=== PATIENT | female | born 1945 | race Hispanic/Latino ===

== ENCOUNTER → 2017-10-15 | Outpatient (CLI) | payer OTHER ==
[~2017-10-15] MED LIST: ATOR40TA71 PO; LEVO75TA10 PO; OMEP40CA37 PO
== END | disposition home or self-care (01) ==
LOC: RAH 08:51
PROVIDERS: ATTEND Family Medicine
DX: Z12.31 Encounter for screening mammogram for malignant neoplasm of breast (principal)
CPT/HCPCS: 77067

== ENCOUNTER → 2019-07-09 | Outpatient (CLI) | payer OTHER ==
[~2019-07-09] MED LIST changes: +OMEP40CA13 PO; -OMEP40CA37 PO
== END | disposition home or self-care (01) ==
LOC: RAH 07:59
PROVIDERS: ATTEND Family Medicine
DX: Z12.31 Encounter for screening mammogram for malignant neoplasm of breast (principal)
CPT/HCPCS: 77067

== ENCOUNTER → 2020-09-13 | Outpatient (CLI) | payer OTHER | END | disposition home or self-care (01) | LOC: RAH 08:44 | PROVIDERS: ATTEND Family Medicine | DX: Z12.31 Encounter for screening mammogram for malignant neoplasm of breast (principal) | CPT/HCPCS: 77067 ==

== ENCOUNTER 2023-11-23 11:50 | Emergency (ER) | payer OTHER ==
[~2023-11-23] VITALS: Ht 165.1 cm; Wt 78.9 kg
[~2023-11-23 11:50] MED LIST changes: -OMEP40CA13 PO; +OMEP40CA21 PO
[2023-11-23 12:21] LABS: BASOPHILS # (AUTO) 0.03 K/uL (0.00-0.20); BASOPHILS % (AUTO) 0.5 % (0.0-5.0); EOSINOPHILS # (AUTO) 0.16 K/uL (0.00-0.70); EOSINOPHILS % (AUTO) 2.6 % (0.0-8.0); HEMATOCRIT 40.2 % (36-48); IMMATURE GRANULOCYTE ABSOLUTE 0.01 K/uL (0-1); LYMPHOCYTES % (AUTO) 47.4 % (21.0-51.0); MEAN CORPUSCULAR HEMOGLOBIN 27.8 pg (27.0-33.0); MEAN CORPUSCULAR HGB CONC 33.1 g/dL (32.0-36.0); MEAN CORPUSCULAR VOLUME 84.1 fL (79-99); MONOCYTES # (AUTO) 0.5 K/uL (0.1-1.0); MONOCYTES % (AUTO) 7.2 % (3.0-13.0); NEUTROPHILS # (AUTO) 2.6 K/uL (1.8-7.7); NEUTROPHILS % (AUTO) 42.1 % (40.0-77.0); PLATELET COUNT (AUTO) 135 K/uL (130-400); RED BLOOD CELL COUNT(AUTO) 4.78 MIL/uL (4.00-5.50); RED CELL DISTRIBUTION WIDTH 13.5 % (11.0-15.5); WHITE BLOOD COUNT (AUTO) 6.2 K/uL (4.8-10.8)
[2023-11-23] MEDS ORDERED: IOHEXOL 350 MG/ML 100ML INFUS..BTL IV ONE (12:21)
[2023-11-23] MEDS ORDERED: ACYCLOVIR 1000 MG VIAL IV ONE (12:30)
[2023-11-23 12:33] LABS: CREATININE 0.7 mg/dL (0.5-1.0); POTASSIUM 4.9 mmol/L (3.5-5.1)
[2023-11-23 12:37] LABS: INR 0.96 (0.85-1.15); PARTIAL THROMBOPLASTIN TIME 25.3 SEC (26.3-35.5); PROTHROMBIN TIME 10.2 SEC (9.6-11.6)
[2023-11-23 12:38] LABS: ALBUMIN 4.4 g/dL (3.5-5.0); BILIRUBIN,TOTAL 0.6 mg/dL (0.2-1.0); TOTAL PROTEIN, SERUM 7.8 g/dL (6.0-8.3)
[2023-11-23] MEDS: DEXAMETHASONE SOD PHOSPHATE 10MG/ML 1ML VIAL IVP ONE (13:39)
[2023-11-23] MEDS: ONDANSETRON 4MG INJ IVP ONE (13:39)
[2023-11-23 14:25] LABS: APPEARANCE,URINE CLEAR (CLEAR); BILIRUBIN,URINE NEGATIVE (NEGATIVE); GLUCOSE, URINE (UA) NEGATIVE (NEGATIVE); KETONES,URINE NEGATIVE (NEGATIVE); LEUKOCYTE ESTERASE ,URINE NEGATIVE Leu/uL (NEGATIVE); NITRATE,URINE NEGATIVE (NEGATIVE); OCCULT BLOOD,URINE NEGATIVE (NEGATIVE); PROTEIN,URINE NEGATIVE (NEGATIVE); UROBILINOGEN,URINE 0.2 mg/dL (0.2-1.0)
[2023-11-23 14:27] LABS: ADD UA MICROSCOPIC NO; COLOR,URINE Straw (YELLOW)
[2023-11-23 15:21] VITALS: BP 124/76; PULSE 68; RESP 18; O2SAT 98
[2023-11-23] MEDS ORDERED: PRED20TA3 PO (15:22)
[2023-11-23] MEDS ORDERED: ONDA-243 PO (15:22)
[2023-11-23] MEDS ORDERED: OMEP20TA20 PO (15:22)
[2023-11-23] MEDS ORDERED: VALA10002 PO (15:22)
[2023-11-23] MEDS ORDERED: DEXT1DRO8 OP (15:22)
[2023-11-23] MEDS ORDERED: DEXT15DR24 OP (15:22)
[2023-11-23] MEDS: ARTIFICAL TEARS SOL 15 ML OP SCH (15:45)
== END 2023-11-23 15:45 | disposition home or self-care (01) ==
LOC: EDH 11:50
DX: G51.0 Bell's palsy (principal); D69.6 Thrombocytopenia, unspecified; Z79.899 Other long term (current) drug therapy
CPT/HCPCS: 99285; 96365; 70450; 96375; 71045; 84484; 80053; 85025; 85610; 85730; 82948; 81003; 36415; 93005; J1100; J2405; J0133; J7050; Q9967

== ENCOUNTER 2025-04-13 09:09 | Emergency (ER) | payer OTHER ==
[~2025-04-13] VITALS: Ht 162.6 cm; Wt 82.1 kg
[~2025-04-13 09:09] MED LIST changes: +DEXT15DR24 OP; +DEXT1DRO8 OP; +OMEP20TA20 PO; +ONDA-243 PO; +PRED20TA3 PO; +VALA10002 PO
--- NOTE | 2025-04-13 09:19 | ERN ---
General Chief Complaint: Shortness of Breath Stated Complaint: SOB Time Seen by MD: 09:14 Source: patient History of Present Illness Initial Comments Patient is a 79-year-old female coming in complaining of shortness of breath. Patient states that earlier today she has a episode of shortness of breath which she could not catch her breath and decided to come in for further evaluation. Patient states that she has a history of hypertension. She has a never down oxygen at home. Allergies: Coded Allergies: No Known Drug Allergies (Unverified Allergy, Unknown, 05/08/16) Home Meds Active Scripts Dextran 70/Hypromellose (Artificial Tears Eye Drops) 0.1 %-0.3 % Drops, 15 ML OP QID, #1 BOTTLE Prov:GRACIE HERNANDEZ MD 11/23/23 Dextran 70/Hypromellose/Pf (Artificial Tears Drops) 0.1 %-0.3 % Droperette, 1 EACH OP QID, #1 BOTTLE Prov:GRACIE HERNANDEZ MD 11/23/23 Ondansetron (Ondansetron Odt) 4 Mg Tab.rapdis, 4 MG PO Q6HPRN PRN for NAUSEA/VOMITING, #30 TAB Prov:GRACIE HERNANDEZ MD 11/23/23 Omeprazole (Omeprazole) 20 Mg Tablet.dr, 20 MG PO DAILY, #30 TAB Prov:GRACIE HERNANDEZ MD 11/23/23 Prednisone (Prednisone) 20 Mg Tablet, 10 MG PO DAILYBKFST for 4 Days, #2 TAB Prov:GRACIE HERNANDEZ MD 11/23/23 Prednisone (Prednisone) 20 Mg Tablet, 20 MG PO DAILYBKFST, #3 TAB Prov:GRACIE HERNANDEZ MD 11/23/23 Prednisone (Prednisone) 20 Mg Tablet, 40 MG PO DAILYBKFST, #6 TAB Prov:GRACIE HERNANDEZ MD 11/23/23 Prednisone (Prednisone) 20 Mg Tablet, 60 MG PO DAILYBKFST, #9 TAB Prov:GRACIE HERNANDEZ MD 11/23/23 Valacyclovir HCl (Valtrex) 1,000 Mg Tablet, 1000 MG PO TID, #30 TAB Prov:GRACIE HERNANDEZ MD 11/23/23 Reported Medications Omeprazole (Omeprazole) 40 Mg Capsule.dr, 40 MG PO AD PRN for gerd, CAP 05/08/16 Atorvastatin Calcium (Atorvastatin Calcium) 40 Mg Tablet, 40 MG PO PM, TAB 05/08/16 Levothyroxine Sodium (Levothyroxine Sodium) 75 Mcg Tablet, 75 MCG PO AM, TAB 05/08/16 Past Medical History Past Medical History: High Cholesterol, Hypothyroid Past Surgical History: Other Surgical History Other: NO SURGERIES ROS Dictation CONSTITUTIONAL: No chills, no fever, no weakness, no diaphoresis, no malaise. HEAD/FACE: No signs of trauma. EENT: No eye pain, no blurred vision, no tearing, no double vision, no ear pain, no ear discharge, no nose pain, no nasal congestion, no throat pain, no throat swelling, no mouth pain. RESPIRATORY: No cough, no orthopnea, SOB, no stridor, no wheezing. CARDIOVASCULAR: No chest pain, no edema, no palpitations, no syncope. GASTROINTESTINAL/ABDOMINAL: No abdominal pain, no constipation, no diarrhea, no nausea, no vomiting. GENITOURINARY: No abnormal discharge, no dysuria, no frequent urination, no hematuria. No complaints of pain in the genitals. MUSCULOSKELETAL: No back pain, no gout, no joint pain, no joint swelling, no muscle pain, no muscle stiffness, no neck pain. INTEGUMENTARY: No change in color, no change in hair/nails, no dryness, no lesion, no lumps, no rash. NEUROLOGICAL/PSYCH: No anxiety, not depressed, no emotional problem, no headache, no numbness, no pre-existing deficit, no history of seizures, no tremors, no weakness. HEMATOLOGIC/LYMPHATIC: Not anemic, no history of blood clots, no apparent bleeding, no bruising, glands not swollen. All Systems Negative, Except as Noted. Physical Exam Physical Exam Dictation VITAL SIGNS: Reviewed. GENERAL APPEARANCE: Alert, oriented x3, no acute distress, obese. HEAD AND FACE: Non-traumatic. EYES: PERRL, pink conjunctivas, eyelid no trauma, anterior chamber clear. EARS: Pinnas intact and no signs of trauma or erythema. Ear canals clear and no discharge. TMs no erythema. NOSE: No discharge, no bleeding. OROPHARYNX: Mouth normal, teeth no caries, tongue pink. Pharynx clear, no erythema. Tonsils no exudates, no abscesses noted. Mucous membrane moist. NECK: Supple, non-tender, no thyromegaly, no masses, no JVD, no bruits. BREAST: Deferred. CHEST: No tenderness, no crepitus, no paradoxical movement, no retractions. LUNGS: Clear, well-ventilated, symmetric, no rales, no wheezing, no rhonchi, no stridor, good breath sounds bilaterally. HEART: Regular rate, regular rhythm, no murmur, no gallops. VASCULAR: No peripheral edema. ABDOMEN: Soft, positive bowel sounds, nondistended, no guarding, nontender, no rebound, no masses no hepatomegaly, no splenomegaly, no Caldera's sign, no hernias. RECTAL: Deferred. GENITAL: Deferred. NEUROLOGICAL: Normal speech, gross motor function intact, gross sensory function intact. MUSCULOSKELETAL: Neck nontender, full range of motion, back nontender, full range of motion. EXTREMITIES: Nontender, full range of motion. SKIN: Color pink, dry, no turgor, no rash, no lacerations, no abrasions, no contusions. LYMPHATICS: Deferred. Results Laboratory and Microbiology Lab and Micro Result Laboratory Tests Test 04/13/25 09:00 04/13/25 09:20 04/13/25 09:30 Urine Color COLORLESS (YELLOW) Urine Appearance CLEAR (CLEAR) Urine pH 6.5 (5.0-8.0) Urine Specific [place] 1.005 (1.001-1.031) Urine Protein NEGATIVE mg/dL (NEGATIVE) Urine Glucose (UA) NEGATIVE mg/dL (NEGATIVE) Urine Ketones NEGATIVE mg/dL (NEGATIVE) Urine Occult Blood NEGATIVE (NEGATIVE) Urine Nitrate NEGATIVE (NEGATIVE) Urine Bilirubin NEGATIVE mg/dL (NEGATIVE) Urine Urobilinogen 0.2 mg/dL (0.2-1.0) Urine Leukocyte Esterase NEGATIVE Rich/uL Influenza Type A Antigen Negative For Type A Influenza Type B Antigen Negative For Type B SARS-CoV-2, RNA, NAAT NEGATIVE SARS CoV-2 Group A Streptococcus Rapid negative (NEGATIVE) White Blood Count 6.1 K/uL (4.8-10.8) Red Blood Count 4.78 MIL/uL (4.00-5.50) Hemoglobin 13.5 g/dL (12.0-16.0) Hematocrit 42.3 % (36-48) Mean Corpuscular Volume 88.5 fL (79-99) Mean Corpuscular Hemoglobin 28.2 pg (27.0-33.0) Mean Corpuscular Hemoglobin Concent 31.9 g/dL (32.0-36.0) L Red Cell Distribution Width 14.0 % (11.0-15.5) Platelet Count 145 K/uL (130-400) Mean Platelet Volume 11.9 fL (7.5-10.5) H Immature Granulocyte % (Auto) 0.2 % (0-1) Neutrophils (%) (Auto) 47.6 % (40.0-77.0) Lymphocytes (%) (Auto) 40.7 % (21.0-51.0) Monocytes (%) (Auto) 7.6 % (3.0-13.0) Eosinophils (%) (Auto) 3.1 % (0.0-8.0) Basophils (%) (Auto) 0.8 % (0.0-5.0) Neutrophils # (Auto) 2.9 K/uL (1.8-7.7) Lymphocytes # (Auto) 2.5 K/uL (1.0-4.8) Monocytes # (Auto) 0.5 K/uL (0.1-1.0) Eosinophils # (Auto) 0.19 K/uL (0.00-0.70) Basophils # (Auto) 0.05 K/uL (0.00-0.20) Absolute Immature Granulocyte (auto 0.01 K/uL (0-1) Nucleated Red Blood Cells 0.0 % (0.0-0.19) Sodium Level 140 mmol/L (136-145) Potassium Level 4.3 mmol/L (3.5-5.1) Chloride Level 104 mmol/L (101-111) Carbon Dioxide Level 28 mmol/L (21-32) Blood Urea Nitrogen 17 mg/dL (7-18) Creatinine 0.7 mg/dL (0.5-1.0) Glomerular Filtration Rate Calc 88 mL/min (>90) Random Glucose 101 mg/dL (70-105) Total Calcium 9.1 mg/dL (8.5-10.1) Magnesium Level 2.00 mg/dL (1.80-2.40) Troponin I High Sensitivity 9 ng/L (4-50) B-Type Natriuretic Peptide 47 pg/mL (0-100) Labs Reviewed?: Yes EKG/XRAY/US/CT/MRI EKG Comment 04/13/2025 time 9:01 a.m. Ventricular rate 67 Sinus rhythm [place] [address] wave elevation or depression X-RAY Comment [facility] [address] [place] [address] IMAGING REPORT Signed PATIENT: ELIZABET CORTES MR#: [id number] : 1945 SEX: F AGE: 79 LOCATION: [facility] ORDER 7 STATUS: REG ER REPORT#: [id number] SERVICE 5 REASON: sob ORDERING PHYSICIAN: DOMINGA MOLINA MD PROCEDURE: CXR1VW - CHEST 1VW EXAM: CR Chest, 1 View. CLINICAL HISTORY: sob COMPARISON: None provided. FINDINGS: LUNGS: The lungs show no infiltrate or other acute finding. PLEURAL SPACES: No evidence of pleural effusion or pneumothorax. MEDIASTINUM: Cardiac size and mediastinal contours within normal limits. BONES: No aggressive appearing osseous lesion seen. IMPRESSION: No acute cardiopulmonary pathology is evident. /[place] DICTATED BY: PARAM AGUILAR Jr., MD DATE: 04/13/251139 ELECTRONICALLY SIGNED BY: PARAM AGUILAR Jr., MD DATE: 04/13/25 114 [facility] MDM: Differential diagnosis: Sinusitis, URI, flu, COVID, pneumonia, Rationale: Tests considered and ordered secondary to shared decision making include: Previous outside records reviewed: Old ER visits. Risk of complication and/or morbidity or mortality of patient management: None Medications-Per medication reconciliation Need for hospitalization: Patient does not meet criteria for hospitalization. Need for emergency major/minor surgery: No Patient is a 79-year-old female coming in complaining of a cough and one episode shortness of breath. Laboratory workup did not disclose any acute findings. On physical exam nasal congestion bilateral nasal turbinate swelling maxillary sinus pressure on palpation bilateral tympanic membrane erythema suggestive of sinusitis. Patient will be discharged with oral antibiotics as well as nasal steroids and antihistamines. I did advised her appropriate follow up with PCP throughout ER visit patient remained stable. ED Course Orders Procedure Category Date Status Time Cbc With Differential LAB 04/13/25 Complete 09:16 Chest 1vw RAD 04/13/25 Resulted 09:16 12 Lead Ekg Tracing- EKG 04/13/25 Logged Technical 09:16 Magnesium LAB 04/13/25 Complete 09:16 Troponin I High LAB 04/13/25 Complete Sensitivity 09:16 Urinalysis Profile LAB 04/13/25 Complete 09:16 Basic Metabolic Panel LAB 04/13/25 Complete 09:16 Covid Rna Naat LAB 04/13/25 Complete 09:16 Influenza Type A & B, LAB 04/13/25 Complete Rapid 09:16 Rapid (Group A Strep) LAB 04/13/25 Complete 09:16 B-Type Natriuretic LAB 04/13/25 Complete Peptide 09:57 Vital Signs Date Time Temp Pulse Resp B/P (MAP) Pulse Ox O2 Delivery O2 Flow Rate FiO2 04/13/25 10:00 98.4 58 15 122/54 98 Room Air* 0 21 04/13/25 09:11 97.3 58 18 185/78 98 Room Air 0 DX & DISP Disposition: Discharge Departure Impression: Primary Impression: Sinusitis Condition: Stable Scripts Loratadine (Loratadine) 10 Mg Tablet 1 TAB PO DAILY for allergy symptoms for 30 Days, #30 TAB 0 Refills Prov: DOMINGA MOLINA MD 04/13/25 Fluticasone Propionate (Flonase Nasal Fidelity) 50 Mcg/Actuation [place] 2 SPRAY NS DAILY, #16 GM 0 Refills Prov: DOMINGA MOLINA MD 04/13/25 Amoxicillin (Amoxicillin) 500 Mg Capsule 1 CAP PO TID for 10 Days, #30 CAP 0 Refills Prov: DOMINGA MOLINA MD 04/13/25 Additional Instructions: FOLLOW-UP WITH PRIMARY CARE PROVIDER IN 1 TO 2 DAYS. TAKE MEDICATIONS DIRECTED HERE IN THE EMERGENCY ROOM. OKAY TO CONTINUE HOME MEDICATIONS UNLESS OTHERWISE DISCUSSED DURING YOUR VISIT IN THE EMERGENCY ROOM TODAY. RETURN TO YOUR NEAREST EMERGENCY ROOM IF SYMPTOMS WORSEN OR IF THERE IS NO IMPROVEMENT. CALL 911 IF YOU NEED IMMEDIATE ASSISTANCE. TAKE TYLENOL [id number] NEEDED AND IF NO CONTRAINDICATIONS ARE PRESENT. INCREASE ORAL HYDRATION. A WOUND CULTURE OR URINE CULTURE WAS ORDERED HERE IN THE EMERGENCY ROOM DEPARTMENT PLEASE FOLLOW-UP WITH PRIMARY CARE PROVIDER AND ADVISE THEM TO GET REPORTS FROM OUR FACILITY. IF YOU HAD ANY CHRISTOPHER WRAP/SPLINTS THAT WERE APPLIED HERE, PLEASE DO NOT REMOVE THEM UNTIL YOU SEE YOUR PRIMARY CARE OR SPECIALTY. Referrals: Referrals: JENNIE CARRILLO DO (PCP) LAZARO FAGAN MD Time of Disposition: 11:38 DOMINGA MOLINA MD Apr 13, 2025 09:19
[2025-04-13 09:42] LABS: IMMATURE GRANULOCYTE ABSOLUTE 0.01 K/uL (0-1); NUCLEATED RED BLOOD CELLS 0.0 % (0.0-0.19); PLATELET COUNT (AUTO) 145 K/uL (130-400); RED BLOOD CELL COUNT(AUTO) 4.78 MIL/uL (4.00-5.50); RED CELL DISTRIBUTION WIDTH 14.0 % (11.0-15.5); WHITE BLOOD COUNT (AUTO) 6.1 K/uL (4.8-10.8)
[2025-04-13 09:50] LABS: CREATININE 0.7 mg/dL (0.5-1.0); GLOMERULAR FILTR. RATE CALC 88.0 mL/min (>90); GLUCOSE,RANDOM 101.0 mg/dL (70-105); SODIUM SERUM 140.0 mmol/L (136-145); UREA NITROGEN, BLOOD 17.0 mg/dL (7-18)
[2025-04-13 09:52] LABS: APPEARANCE,URINE CLEAR (CLEAR); GLUCOSE, URINE (UA) NEGATIVE (NEGATIVE); LEUKOCYTE ESTERASE ,URINE NEGATIVE Leu/uL (NEGATIVE); NITRATE,URINE NEGATIVE (NEGATIVE); OCCULT BLOOD,URINE NEGATIVE (NEGATIVE)
[2025-04-13 09:54] LABS: SARS-CoV-2, RNA, NAAT NEGATIVE SARS CoV-2 (NEGATIVE)
[2025-04-13 10:00] LABS: ADD UA MICROSCOPIC NO
[2025-04-13 10:01] LABS: INFLUENZA TYPE A Negative For Type A (NEGATIVE); INFLUENZA TYPE B Negative For Type B (NEGATIVE)
--- NOTE | 2025-04-13 10:41 | HMCIMG ---
EXAM: CR Chest, 1 View. CLINICAL HISTORY: sob COMPARISON: None provided. FINDINGS: LUNGS: The lungs show no infiltrate or other acute finding. PLEURAL SPACES: No evidence of pleural effusion or pneumothorax. MEDIASTINUM: Cardiac size and mediastinal contours within normal limits. BONES: No aggressive appearing osseous lesion seen. IMPRESSION: No acute cardiopulmonary pathology is evident. /[place]
[2025-04-13 11:32] LABS: RAPID GROUP A STREP negative (NEGATIVE)
[2025-04-13] MEDS ORDERED: FLUT16H NS (11:39)
[2025-04-13] MEDS ORDERED: LORA10TA7 PO (11:39)
[2025-04-13] MEDS ORDERED: AMOX500C2 PO (11:39)
[2025-04-13 11:59] VITALS: BP 147/68; PULSE 53; RESP 17; TEMP 98.4; O2SAT 97
--- NOTE | 2025-04-13 12:00 | NUR ---
PT STABLE NO DISTRESS VITALS WNL NO C/O PAIN NOW, PT VERBALIZED UNDERSTANDING, PT HAS NO IV AT THIS TIME, PT TAKEN OUT IN W/C DRIVEN HOME BY SON.
--- NOTE | 2025-04-13 15:01 | EKG ---
[facility] Test Date: 2025-04-13 Test Time: 09:01:23 Pat Name: ELIZABET CORTES Department: ED Room: Gender: F Technical Support Manager: eugenia : 1945 Requested By: DOMINGA MOLINA Order Number: [id number] Reading MD: Dorothy Lee Measurements Intervals [place] Rate: 67 P: 41 WV: 183 QRS: -23 QRSD: 97 T: 68 QT: 428 QTc: 451 Interpretive Statements Sinus rhythm Compared to ECG 11/23/2023 12:29:49 No significant changes Electronically Signed On 04-13-2025 17:17:31 PRODUCTION TEAM ADVISOR by Dorothy Lee Please click the below link to view image of tracing.
== END 2025-04-13 12:01 | disposition home or self-care (01) ==
LOC: EDH 09:09
DX: J32.9 Chronic sinusitis, unspecified (principal); E03.9 Hypothyroidism, unspecified; E78.00 Pure hypercholesterolemia, unspecified; I10 Essential (primary) hypertension; Z79.624 Long term (current) use of inhibitors of nucleotide synthesis; Z79.899 Other long term (current) drug therapy; Z20.822 Contact with and (suspected) exposure to COVID-19
CPT/HCPCS: 99285; 71045; 87635; 83735; 84484; 80048; 83880; 85025; 87880; 87804 ×2; 81003; 36415; 96372; 93005; J1100